=== PATIENT | male | born 1955 | race Caucasian/White ===

== ENCOUNTER 2016-11-02 06:55 | Day surgery (SDC) | payer BC ==
[~2016-11-02 06:55] MED LIST: Lactated Ringers 1,000 ML IV SCH; Lidocaine 1%/Sod Bicarbonate in NS 8.4% 1 ML Syringe PRN; Sodium Chloride 0.9% 10 ML Syringe FLUSH PRN
--- NOTE | 2016-11-02 07:20 | PCM.PREANE ---
Preanesthetic Assessment - Anesthesia/Transfusion/Family Hx Anesthesia History: Prior Anesthesia Without Reaction Family History of Anesthesia Reaction: No - Review of Systems General: No Symptoms Pulmonary: Shortness of Breath (With activity) Cardiovascular: No Symptoms Gastrointestinal: No Symptoms Neurological: No Symptoms Other: Reports: None - Physical Assessment NPO Status Date: 11/02/16 NPO Status Time: 06:15 Pulse: 77 O2 Sat by Pulse Oximetry: 96 Respiratory Rate: 16 Blood Pressure: 111/77 Temperature: 35.7 C Weight: 98 kg ASA Class: 3 Mental Status: Alert & Oriented x3 Airway Class: Mallampati = 1 Dentition: Reports: Partial (Left at home.) Thyro-Mental Finger Breadths: 3 Mouth Opening Finger Breadths: 3 ROM/Head Extension: Full Lungs: Clear to Auscultation, Normal Respiratory Effort Cardiovascular: Regular Rate, Regular Rhythm - Imaging/EKG Impressions: Reviewed. PMR. - Allergies Allergies/Adverse Reactions: Allergies Allergy/AdvReac Type Severity Reaction Status Date / Time No Known Allergies Allergy Verified 11/01/16 12:12 - Acknowledgements Anesthesia Type Planned: MAC Pt an Appropriate Candidate for the Planned Anesthesia: Yes Alternatives and Risks of Anesthesia Discussed w Pt/Guardian: Yes Pt/Guardian Understands and Agrees with Anesthesia Plan: Yes PreAnesthesia Questionnaire HEENT History: Reports: Other (See Below) Other HEENT History: wears glasses, has partial Cardiovascular History: Reports: Afib, Cardiomyopathy, Hypertension Respiratory History: Reports: SOB Gastrointestinal History: Reports: Colon Polyp, Other (See Below) Other Gastrointestinal History: esophagitis Genitourinary History: Reports: None 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 Musculoskeletal History: Neurological History: Reports: None Psychiatric History: Reports: None Hematologic History: Reports: None Immunologic History: Reports: None Oncologic (Cancer) History: Reports: Hodgkin's Lymphoma Dermatologic History: Reports: None - Past Surgical History Head Surgeries/Procedures: Reports: None Cardiovascular Surgical History: Reports: AICD, Pacer GI Surgical History: Reports: Colonoscopy, EGD Female Surgical History: Reports: None Male Surgical History: Reports: None Endocrine Surgical History: Reports: Other (See Below) Other Endocrine Surgeries/Procedures: goiter surgery Neurological Surgical History: Reports: None Musculoskeletal Surgical History: Reports: Shoulder Replacement, Other (See Below) Other Musculoskeletal Surgeries/Procedures:: tib/fib fx with repair, Right hand surgery Oncologic Surgical History: Reports: None Dermatological Surgical History: Reports: None - SUBSTANCE USE Smoking Status *Q: Never Smoker Days Per Week of Alcohol Use: 3 Number of Drinks Per Day: 2 Total Drinks Per Week: 6 Recreational Drug Use History: No - HOME MEDS Home Medications: Home Meds Aspirin [Halfprin] 81 mg PO DAILY 11/01/16 [History] Carvedilol [Carvedilol] 6.25 mg PO BID 11/01/16 [History] Cholecalciferol (Vitamin D3) [Vitamin D3] 1,000 mg PO DAILY 11/01/16 [History] Fish Oil/Osprey-3 Fatty Acids [Fish Oil 1,000 MG] 1,000 mg PO DAILY 11/01/16 [ History] Ibuprofen 1 - 2 tab PO Q6H PRN 11/01/16 [History] Lisinopril [Lisinopril] 2.5 mg PO DAILY 11/01/16 [History] Multivitamin [Zoo Chews] 1 tab PO DAILY 11/01/16 [History] Spironolactone [Aldactone] 25 mg PO DAILY 11/01/16 [History] Tamsulosin HCl [Tamsulosin HCl] 0.4 mg PO DAILY 11/01/16 [History] Warfarin Sodium [Warfarin Sodium] 5 mg PO DAILY 11/01/16 [History] - CURRENT (IN HOUSE) MEDS Current Meds: Current Medications Lactated Ringer's (Ringers, Lactated) 1,000 mls @ 125 mls/hr IV ASDIRECTED BELLA Stop: 11/02/16 23:00 Lidocaine/Sodium Bicarbonate (Buffered Lidocaine 1% In Ns 8.4%) 0.25 ml .XX ONETIME PRN PRN Reason: Prior to IV Start Stop: 11/02/16 18:00 Sodium Chloride (Saline Flush) 10 ml FLUSH ASDIRECTED PRN PRN Reason: Keep Vein Open Stop: 11/02/16 18:00
--- NOTE | 2016-11-02 07:58 | PCM.HP ---
H&P History of Present Illness - General Date of Service: 11/02/16 Admit Problem/Dx: Family history of colon cancer Personal history of colon polyps Source of Information: Patient History Limitations: Reports: No Limitations - History of Present Illness Initial Comments - Free Text/Narative: 60 year old male here today for colon polyp surveillance and family history of colon cancer. Last colonoscopy 5 years ago, adenomatous polyps found. Father with colon cancer. He is having no symptoms at this time. He has a history of paroxysmal a fib and pacemaker placement. He is chest pain free. His echocardiogram is stable. - Related Data Allergies/Adverse Reactions: Allergies Allergy/AdvReac Type Severity Reaction Status Date / Time No Known Allergies Allergy Verified 11/01/16 12:12 Home Medications: Home Meds Aspirin [Halfprin] 81 mg PO DAILY 11/01/16 [History] Carvedilol [Carvedilol] 6.25 mg PO BID 11/01/16 [History] Cholecalciferol (Vitamin D3) [Vitamin D3] 1,000 mg PO DAILY 11/01/16 [History] Fish Oil/Medanales-3 Fatty Acids [Fish Oil 1,000 MG] 1,000 mg PO DAILY 11/01/16 [ History] Ibuprofen 1 - 2 tab PO Q6H PRN 11/01/16 [History] Lisinopril [Lisinopril] 2.5 mg PO DAILY 11/01/16 [History] Multivitamin [Zoo Chews] 1 tab PO DAILY 11/01/16 [History] Spironolactone [Aldactone] 25 mg PO DAILY 11/01/16 [History] Tamsulosin HCl [Tamsulosin HCl] 0.4 mg PO DAILY 11/01/16 [History] Warfarin Sodium [Warfarin Sodium] 5 mg PO DAILY 11/01/16 [History] Past Medical History HEENT History: Reports: Other (See Below) Other HEENT History: wears glasses, has partial Cardiovascular History: Reports: Afib, Cardiomyopathy, Hypertension Respiratory History: Reports: SOB Gastrointestinal History: Reports: Colon Polyp, Other (See Below) Other Gastrointestinal History: esophagitis Genitourinary History: Reports: None 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 Musculoskeletal History: Neurological History: Reports: None Psychiatric History: Reports: None Hematologic History: Reports: None Immunologic History: Reports: None Oncologic (Cancer) History: Reports: Hodgkin's Lymphoma Dermatologic History: Reports: None - Past Surgical History Head Surgeries/Procedures: Reports: None Cardiovascular Surgical History: Reports: AICD, Pacer GI Surgical History: Reports: Colonoscopy, EGD Female Surgical History: Reports: None Male Surgical History: Reports: None Endocrine Surgical History: Reports: Other (See Below) Other Endocrine Surgeries/Procedures: goiter surgery Neurological Surgical History: Reports: None Musculoskeletal Surgical History: Reports: Shoulder Replacement, Other (See Below) Other Musculoskeletal Surgeries/Procedures:: tib/fib fx with repair, Right hand surgery Oncologic Surgical History: Reports: None Dermatological Surgical History: Reports: None Social & Family History - Tobacco Use Smoking Status *Q: Never Smoker - Caffeine Use Caffeine Use: Reports: Coffee - Alcohol Use Days Per Week of Alcohol Use: 3 Number of Drinks Per Day: 2 Total Drinks Per Week: 6 - Recreational Drug Use Recreational Drug Use: No Drug Use in Last 12 Months: No H&P Review of Systems - Review of Systems: Review Of Systems: See Below General: Reports: No Symptoms Pulmonary: Reports: No Symptoms Cardiovascular: Reports: No Symptoms Gastrointestinal: Reports: No Symptoms Exam - Exam Exam: See Below - Vital Signs Vital Signs: Last Vital Signs Temp 36.2 C 11/02/16 07:05 Pulse 77 11/02/16 07:05 Resp 16 11/02/16 07:05 BP 111/77 11/02/16 07:05 Pulse Ox 96 11/02/16 07:05 Weight: 98.883 kg - Exam General: Alert, Oriented Lungs: Clear to Auscultation, Normal Respiratory Effort Cardiovascular: Regular Rate, Regular Rhythm GI/Abdominal Exam: Normal Bowel Sounds, Soft, Non-Tender *Q Meaningful Use (ADM) - VTE *Q VTE Criteria *Q: - Stroke *Q Stroke Criteria *Q: - AMI *Q AMI Criteria *Q: - Problem List (1) Personal history of colonic polyps SNOMED Code(s): 401307782 ICD Code: Z86.010 - PERSONAL HISTORY OF COLONIC POLYPS Status: Acute Current Visit: Yes (2) Family history of colon cancer in father SNOMED Code(s): 288096033, 177819378 ICD Code: Z80.0 - FAMILY HISTORY OF MALIGNANT NEOPLASM OF DIGESTIVE ORGANS Status: Acute Current Visit: Yes Problem List Initiated/Reviewed/Updated: Yes Orders Last 24hrs: Active Orders 24 hr Category Date Time Status Peripheral IV Care [RC] . DIRECTED Care 11/02/16 00:01 Active Verify Patient Consent Obtain [RC] ASDIRECTED Care 11/02/16 00:01 Active Lactated Ringers [Ringers, Lactated] 1,000 ml Med 11/02/16 00:01 Active IV ASDIRECTED Lidocaine 1%/Sod Bicarbonate [Buffered Lidocaine 1% in Med 11/02/16 00:01 Active NS 8.4%] 0.25 ml .XX ONETIME PRN Sodium Chloride 0.9% [Saline Flush] Med 11/02/16 00:01 Active 10 ml FLUSH ASDIRECTED PRN Medication Administration Instruction [OM.PC] Routine Oth 11/02/16 00:01 Ordered Peripheral IV Insertion Adult [OM.PC] Routine Oth 11/02/16 00:01 Ordered Medication Orders Lactated Ringer's (Ringers, Lactated) 1,000 mls @ 125 mls/hr IV ASDIRECTED BELLA Stop: 11/02/16 23:00 Last Admin: 11/02/16 07:40 Dose: 125 mls/hr Lidocaine/Sodium Bicarbonate (Buffered Lidocaine 1% In Ns 8.4%) 0.25 ml .XX ONETIME PRN PRN Reason: Prior to IV Start Stop: 11/02/16 18:00 Last Admin: 11/02/16 07:39 Dose: 0.25 ml Sodium Chloride (Saline Flush) 10 ml FLUSH ASDIRECTED PRN PRN Reason: Keep Vein Open Stop: 11/02/16 18:00 Assessment/Plan Comment:: Proceed with colonoscopy, discussed benefits and risks with patient including perforation or bleeding. Patient has consented to procedure.
[2016-11-02] MEDS ORDERED: fentaNYL 100 MCG/2 ML SDV ONE (08:05)
[2016-11-02] MEDS ORDERED: Lidocaine 1% 4 ML ONE (08:05)
[2016-11-02] MEDS ORDERED: Propofol 200 MG/20 ML SDV ONE (08:05)
[2016-11-02] MEDS ORDERED: Ondansetron 4 MG/2 ML SDV ONE (08:05)
--- NOTE | 2016-11-02 08:31 | PCM.OPNOTE ---
- General Post-Op/Procedure Note Date of Surgery/Procedure: 11/02/16 Operative Procedure(s): Colonoscopy with cold forceps biopsy Pre Op Diagnosis: Family history of colon cancer, Personal history of colon polyps Post-Op Diagnosis: 2 mm rectal polyp Anesthesia Technique: MAC Primary Surgeon: Flroian Min EBL in mLs: 5 Complications: none Condition: Good Free Text/Narrative:: After patient gave verbal and written consent he was placed on blood pressure and pulse ox monitoring. He was given IV sedation which he tolerated well. The olympus colonoscope was inserted per rectum and advanced to the cecum without difficulty. The ileocecal valve and appendiceal orfice were imaged documenting cecal intubation. The prep was good. The views were good. The scope was slowly withdrawn and mucosal surfaces were visualized. A small 2 mm rectal polyp was noted and removed with cold forceps. There was good hemostasis. The scope was retroflexed in the rectum and details are above.
--- NOTE | 2016-11-02 08:36 | PCM48HPAN ---
Post Anesthesia Note - EVALUATION WITHIN 48HRS OF ANESTHETIC Vital Signs in Normal Range: Yes Patient Participated in Evaluation: Yes Respiratory Function Stable: Yes Airway Patent: Yes Cardiovascular Function Stable: Yes Hydration Status Stable: Yes Pain Control Satisfactory: Yes Nausea and Vomiting Control Satisfactory: Yes Mental Status Recovered: Yes
[2016-11-02 09:40] VITALS: BP 117/70
== END 2016-11-02 09:40 | disposition home or self-care (01) ==
LOC: JD.SDS 06:55
PROVIDERS: ATTEND Family Medicine
DX: Z12.11 Encounter for screening for malignant neoplasm of colon (principal); D12.8 Benign neoplasm of rectum; Z86.010 Personal history of colon polyps; Z80.0 Family history of malignant neoplasm of digestive organs; Z79.82 Long term (current) use of aspirin; Z79.899 Other long term (current) drug therapy; I10 Essential (primary) hypertension; Z95.810 Presence of automatic (implantable) cardiac defibrillator; Z95.0 Presence of cardiac pacemaker; Z98.890 Other specified postprocedural states; Z96.611 Presence of right artificial shoulder joint
CPT/HCPCS: 45380; J2405; J3010; J7120; 00810; J2704

== ENCOUNTER 2023-01-26 13:33 | Inpatient (IN) | payer MEDICARE, BC ==
[2023-01-26] MEDS ORDERED: Sodium Chloride 0.9% 10 ML Syringe FLUSH PRN (13:53)
[2023-01-26] MEDS ORDERED: Sodium Chloride 0.9% 500 ML IV STA (14:20)
[2023-01-26 14:30] LABS: BASOPHILS PERCENT AUTO 0.4 % (0.0-1.0); EOSINOPHILS ABSOLUTE AUTO 0.1 K/mm3 (0.0-0.4); EOSINOPHILS PERCENT AUTO 1.5 % (0.0-6.0); HEMATOCRIT 38.3 % (42.0-52.0); HEMOGLOBIN 12.6 gm/dl (14.0-18.0); IMMATURE GRAN ABSOLUTE AUTO 0.02 K/mm3 (0.00-0.05); IMMATURE GRAN PERCENT AUTO 0.3 % (0.0-0.4); LYMPHOCYTES ABSOLUTE AUTO 0.7 K/mm3 (1.0-4.8); LYMPHOCYTES PERCENT AUTO 10.2 % (24.0-44.0); MEAN CORPUSCULAR HEMOGLOBIN 31.3 pg (28.0-32.0); MEAN CORPUSCULAR HGB CONC 32.9 g/dl (32.0-36.0); MEAN PLATELET VOLUME 10.3 fl (9.4-12.4); MONOCYTES ABSOLUTE AUTO 0.8 K/mm3 (0.0-0.8); MONOCYTES PERCENT AUTO 11.6 % (0.0-8.0); NEUTROPHILS ABSOLUTE AUTO 5.2 K/mm3 (1.8-7.7); PLATELET COUNT,PLT 134 K/mm3 (150-400); RED BLOOD CELL COUNT 4.03 M/mm3 (4.52-5.90); WHITE BLOOD CELL COUNT,WBC 6.79 K/mm3 (3.9-11.3)
[2023-01-26 14:41] LABS: APPEARANCE,URINE CLEAR (Clear); BILIRUBIN,URINE NEGATIVE (Negative); COLOR,URINE YELLOW (Yellow); GLUCOSE,URINE NEGATIVE (Negative); KETONES,URINE NEGATIVE (Negative); LEUKOCYTE ESTERASE,URINE NEGATIVE (Negative); NITRITE,URINE NEGATIVE (Negative); OCCULT BLOOD,URINE NEGATIVE (Negative); PROTEIN,URINE 1+ (Negative); UROBILINOGEN,URINE 0.2 (0.2-1.0)
[2023-01-26 14:49] LABS: AMORPHOUS SEDIMENT,URINE FEW /hpf (NOT SEEN); BACTERIA,URINE FEW /hpf (FEW); EPITHELIAL CELLS,URINE 0-5 /hpf (0-5); MUCUS,URINE FEW /hpf (FEW); RBC,URINE 0-5 /hpf (0-5); WBC,URINE 0-5 /hpf (0-5)
[2023-01-26 14:58] LABS: ALBUMIN 3.3 g/dl (3.4-5.0); ANION GAP 9.8 (5-15); BILIRUBIN TOTAL 1.7 mg/dL (0.2-1.0); BUN/CREATININE RATIO 18.5 (14-18); CALCIUM 8.9 mg/dL (8.5-10.1); CREATININE 1.3 mg/dL (0.7-1.3); EST CRCL DRUG DOSING (CG) 62.35 mL/min; POTASSIUM,K 3.8 mEq/L (3.5-5.1); PROTEIN TOTAL,TP 6.5 g/dl (6.4-8.2)
[2023-01-26 15:04] LABS: CORONAVIRUS COVID-19 NAA NEGATIVE (NEGATIVE); INFLUENZA A NAA NEGATIVE (NEGATIVE); RESPIRATORY SYNCYTIAL VIR NAA NEGATIVE (NEGATIVE)
[2023-01-26 15:30] LABS: INR 2.92; PROTHROMBIN TIME 28.9 SECONDS (9.7-12.0)
[2023-01-26] MEDS ORDERED: Acetaminophen 325 MG Tab PO PRN (16:19)
[2023-01-26] MEDS ORDERED: oxyCODONE 5 MG Tab PO PRN (16:19)
[2023-01-26 17:37] LABS: INR 2.95; PROTHROMBIN TIME 29.1 SECONDS (9.7-12.0)
[2023-01-26] MEDS: Sodium Chloride 0.9% 1,000 ML IV SCH (18:48)
[2023-01-26] MEDS: Carbidopa/Levodopa 25-100 MG Tab.ER PO SCH (20:26)
[2023-01-26] MEDS ORDERED: Carbidopa/Levodopa 25-100 MG Tab PO SCH (21:00)
[2023-01-27] MEDS: Sodium Chloride 0.9% 1,000 ML IV SCH ×2 (05:08→14:17)
[2023-01-27 05:47] LABS: BASOPHILS PERCENT AUTO 0.6 % (0.0-1.0); EOSINOPHILS ABSOLUTE AUTO 0.1 K/mm3 (0.0-0.4); EOSINOPHILS PERCENT AUTO 2.2 % (0.0-6.0); HEMATOCRIT 36.8 % (42.0-52.0); HEMOGLOBIN 12.3 gm/dl (14.0-18.0); IMMATURE GRAN ABSOLUTE AUTO 0.02 K/mm3 (0.00-0.05); IMMATURE GRAN PERCENT AUTO 0.3 % (0.0-0.4); LYMPHOCYTES ABSOLUTE AUTO 0.9 K/mm3 (1.0-4.8); LYMPHOCYTES PERCENT AUTO 13.1 % (24.0-44.0); MEAN CORPUSCULAR HEMOGLOBIN 30.7 pg (28.0-32.0); MEAN CORPUSCULAR HGB CONC 33.4 g/dl (32.0-36.0); MONOCYTES ABSOLUTE AUTO 0.9 K/mm3 (0.0-0.8); MONOCYTES PERCENT AUTO 13.3 % (0.0-8.0); NEUTROPHILS ABSOLUTE AUTO 4.6 K/mm3 (1.8-7.7); NEUTROPHILS PERCENT AUTO 70.5 % (41.0-71.0); PLATELET COUNT,PLT 137 K/mm3 (150-400); RED BLOOD CELL COUNT 4.01 M/mm3 (4.52-5.90); WHITE BLOOD CELL COUNT,WBC 6.48 K/mm3 (3.9-11.3)
[2023-01-27 05:56] LABS: A/G RATIO 0.9 (1-2); ALBUMIN 3.1 g/dl (3.4-5.0); ANION GAP 13.7 (5-15); BILIRUBIN TOTAL 1.6 mg/dL (0.2-1.0); CALCIUM 8.7 mg/dL (8.5-10.1); CREATININE 1.2 mg/dL (0.7-1.3); EST CRCL DRUG DOSING (CG) 67.55 mL/min; POTASSIUM,K 3.7 mEq/L (3.5-5.1); PROTEIN TOTAL,TP 6.5 g/dl (6.4-8.2)
[2023-01-27 05:58] LABS: MEAN CORPUSCULAR VOLUME 91.8 fl (83.0-99.0)
[2023-01-27] MEDS: Tamsulosin 0.4 MG Cap.ER PO SCH (08:24)
[2023-01-27] MEDS: Multivitamin Tab PO SCH (08:24)
[2023-01-27] MEDS: Carbidopa/Levodopa 25-100 MG Tab PO SCH ×3 (08:24→17:09)
[2023-01-27] MEDS: Potassium Chloride 20 MEQ Tab.ER PO SCH (08:24)
[2023-01-27] MEDS: Sertraline 50 MG Tab PO SCH (08:25)
[2023-01-27] MEDS: Spironolactone 25 MG Tab PO SCH (08:25)
[2023-01-27] MEDS: Losartan 25 MG Tab PO SCH (08:27)
[2023-01-27] MEDS: Metoprolol Succinate 50 MG Tab.ER PO SCH (08:27)
[2023-01-27] MEDS ORDERED: Metolazone 2.5 MG Tab PO SCH (09:00)
[2023-01-27] MEDS ORDERED: Cholecalciferol (Vitamin D3) 25 MCG Tab PO SCH (09:00)
[2023-01-27] MEDS ORDERED: Furosemide 40 MG Tab PO SCH (09:00)
[2023-01-27] MEDS ORDERED: Lidocaine 1% 10 ML MDV INJECT PRN ×2 (09:46→12:00)
[2023-01-27] MEDS ORDERED: Ondansetron 4 MG Tab.DIS PO PRN (14:07)
[2023-01-27] MEDS ORDERED: Warfarin 5 MG Tab PO SCH (18:00)
[2023-01-27] MEDS: Carbidopa/Levodopa 25-100 MG Tab.ER PO SCH (21:18)
[2023-01-28] MEDS: Sodium Chloride 0.9% 1,000 ML IV SCH (00:13)
[2023-01-28 06:24] LABS: BASOPHILS ABSOLUTE AUTO 0.1 K/mm3 (0.0-0.2); BASOPHILS PERCENT AUTO 0.6 % (0.0-1.0); EOSINOPHILS ABSOLUTE AUTO 0.1 K/mm3 (0.0-0.4); EOSINOPHILS PERCENT AUTO 1.4 % (0.0-6.0); HEMATOCRIT 40.5 % (42.0-52.0); HEMOGLOBIN 13.5 gm/dl (14.0-18.0); IMMATURE GRAN ABSOLUTE AUTO 0.03 K/mm3 (0.00-0.05); IMMATURE GRAN PERCENT AUTO 0.3 % (0.0-0.4); LYMPHOCYTES ABSOLUTE AUTO 1.1 K/mm3 (1.0-4.8); LYMPHOCYTES PERCENT AUTO 12.3 % (24.0-44.0); MEAN CORPUSCULAR HEMOGLOBIN 31.2 pg (28.0-32.0); MEAN CORPUSCULAR HGB CONC 33.3 g/dl (32.0-36.0); MEAN CORPUSCULAR VOLUME 93.5 fl (83.0-99.0); MEAN PLATELET VOLUME 10.6 fl (9.4-12.4); MONOCYTES PERCENT AUTO 11.2 % (0.0-8.0); NEUTROPHILS ABSOLUTE AUTO 6.4 K/mm3 (1.8-7.7); NEUTROPHILS PERCENT AUTO 74.2 % (41.0-71.0); PLATELET COUNT,PLT 142 K/mm3 (150-400); RED BLOOD CELL COUNT 4.33 M/mm3 (4.52-5.90); WHITE BLOOD CELL COUNT,WBC 8.59 K/mm3 (3.9-11.3)
[2023-01-28] MEDS: Carbidopa/Levodopa 25-100 MG Tab PO SCH ×3 (06:36→17:09)
[2023-01-28 06:51] LABS: ALBUMIN 2.9 g/dl (3.4-5.0); ANION GAP 12.7 (5-15); BILIRUBIN TOTAL 1.9 mg/dL (0.2-1.0); CALCIUM 8.2 mg/dL (8.5-10.1); CREATININE 1.1 mg/dL (0.7-1.3); EST CRCL DRUG DOSING (CG) 73.69 mL/min; POTASSIUM,K 3.7 mEq/L (3.5-5.1); PROTEIN TOTAL,TP 5.9 g/dl (6.4-8.2)
[2023-01-28] MEDS ORDERED: Furosemide 40 MG/4 ML VIAL IVPUSH ONE (07:43)
[2023-01-28 07:59] LABS: BODY FLUID TYPE THORACENTESIS FLUID
[2023-01-28] MEDS ORDERED: Polyethylene Glycol 3350 Powder 17 GM Packet PO PRN (08:09)
[2023-01-28 08:12] LABS: BODY FLUID TYPE THORACENTESIS FLUID
[2023-01-28] MEDS ORDERED: Ondansetron 4 MG/2 ML SDV IV PRN (08:12)
[2023-01-28 08:28] LABS: INR 2.25; PROTHROMBIN TIME 22.7 SECONDS (9.7-12.0)
[2023-01-28 08:33] LABS: PROTEIN,BODY FLUID 3.1 gm/dl
[2023-01-28] MEDS: Potassium Chloride 20 MEQ Tab.ER PO SCH (08:38)
[2023-01-28] MEDS: Losartan 25 MG Tab PO SCH (08:39)
[2023-01-28] MEDS: Metoprolol Succinate 50 MG Tab.ER PO SCH (08:39)
[2023-01-28] MEDS: Tamsulosin 0.4 MG Cap.ER PO SCH (08:40)
[2023-01-28] MEDS: Sertraline 50 MG Tab PO SCH (08:40)
[2023-01-28] MEDS: Multivitamin Tab PO SCH (08:40)
[2023-01-28] MEDS: Spironolactone 25 MG Tab PO SCH (08:40)
[2023-01-28 08:44] LABS: LACTATE DEHYDROGENASE,BODY FL 92 U/L
[2023-01-28] MEDS ORDERED: Metolazone 2.5 MG Tab PO SCH (09:00)
[2023-01-28] MEDS ORDERED: Docusate Sodium 100 MG Cap PO PRN (09:00)
[2023-01-28] MEDS ORDERED: oxyCODONE 5 MG Tab PO PRN (15:52)
[2023-01-28] MEDS ORDERED: Warfarin 5 MG Tab PO SCH (18:00)
[2023-01-28] MEDS: Carbidopa/Levodopa 25-100 MG Tab.ER PO SCH (20:22)
[2023-01-29 05:29] LABS: ANION GAP 13.8 (5-15); CALCIUM 8.5 mg/dL (8.5-10.1); EST CRCL DRUG DOSING (CG) 81.06 mL/min; MAGNESIUM 1.7 mg/dL (1.8-2.4); POTASSIUM,K 3.8 mEq/L (3.5-5.1)
[2023-01-29 06:08] LABS: INR 2.11; PROTHROMBIN TIME 21.4 SECONDS (9.7-12.0)
[2023-01-29] MEDS: Carbidopa/Levodopa 25-100 MG Tab PO SCH (06:35)
[2023-01-29] MEDS ORDERED: Magnesium Sulfate/Water 2 GM in Premix Bag 1 BAG IV ONE (07:53)
[2023-01-29] MEDS: Potassium Chloride 20 MEQ Tab.ER PO SCH (08:20)
[2023-01-29] MEDS: Losartan 25 MG Tab PO SCH (08:21)
[2023-01-29] MEDS: Metoprolol Succinate 50 MG Tab.ER PO SCH (08:21)
[2023-01-29] MEDS: Spironolactone 25 MG Tab PO SCH (08:21)
[2023-01-29] MEDS: Sertraline 50 MG Tab PO SCH (08:21)
[2023-01-29] MEDS: Multivitamin Tab PO SCH (08:21)
[2023-01-29] MEDS: Tamsulosin 0.4 MG Cap.ER PO SCH (08:21)
[2023-01-29 08:23] VITALS: BP 91/66; PULSE 81
[2023-01-29] MEDS ORDERED: Furosemide 40 MG Tab PO ONE (08:30)
[2023-01-29] MEDS ORDERED: Furosemide 40 MG Tab PO SCH (14:00)
[2023-01-29] MEDS ORDERED: Warfarin 5 MG Tab PO SCH (18:00)
[2023-01-30] MEDS ORDERED: Losartan 25 MG Tab PO SCH (09:00)
== END 2023-01-29 10:47 | disposition home or self-care (01) | DRG 291 ==
LOC: JD.ED 13:33 → JD.MS 16:20
PROVIDERS: ADMIT Internal Medicine; ATTEND Internal Medicine
PROC: 0W993ZZ Drainage of Right Pleural Cavity, Percutaneous Approach (ICD-10-PCS; principal; 2023-01-27)
DX: I11.0 Hypertensive heart disease with heart failure (principal); I50.43 Acute on chronic combined systolic (congestive) and diastolic (congestive) heart failure; J90 Pleural effusion, not elsewhere classified; I48.91 Unspecified atrial fibrillation; I95.9 Hypotension, unspecified; Z79.899 Other long term (current) drug therapy; G20.B1 Parkinson's disease with dyskinesia, without mention of fluctuations; E83.42 Hypomagnesemia; G20.A1 Parkinson's disease without dyskinesia, without mention of fluctuations; Z20.822 Contact with and (suspected) exposure to COVID-19; Z79.01 Long term (current) use of anticoagulants; Z95.0 Presence of cardiac pacemaker; Z85.72 Personal history of non-Hodgkin lymphomas; Z86.16 Personal history of COVID-19; Z87.891 Personal history of nicotine dependence; Z11.52 Encounter for screening for COVID-19
CPT/HCPCS: 0241U; 36415; 71045; 71046; 80048; 80053; 81001; 83615; 83735; 83880; 84157; 84484; 85025; 85379; 85610; 86140; 93005; 93307; 96360; 96361; 97116; 97161; 99285; 88112; 93010; A9270-GY; J1940; J3475; J3490; J7030

== ENCOUNTER 2023-02-04 14:44 | Emergency (ER) | payer MEDICARE, BC ==
[2023-02-04] MEDS ORDERED: Sodium Chloride 0.9% 10 ML Syringe FLUSH PRN (15:34)
[2023-02-04 16:08] LABS: BASOPHILS ABSOLUTE AUTO 0.1 K/mm3 (0.0-0.2); BASOPHILS PERCENT AUTO 0.8 % (0.0-1.0); EOSINOPHILS ABSOLUTE AUTO 0.2 K/mm3 (0.0-0.4); HEMATOCRIT 40.9 % (42.0-52.0); HEMOGLOBIN 13.6 gm/dl (14.0-18.0); IMMATURE GRAN ABSOLUTE AUTO 0.04 K/mm3 (0.00-0.05); IMMATURE GRAN PERCENT AUTO 0.6 % (0.0-0.4); LYMPHOCYTES ABSOLUTE AUTO 0.8 K/mm3 (1.0-4.8); LYMPHOCYTES PERCENT AUTO 12.4 % (24.0-44.0); MEAN CORPUSCULAR HEMOGLOBIN 31.3 pg (28.0-32.0); MEAN CORPUSCULAR HGB CONC 33.3 g/dl (32.0-36.0); MEAN CORPUSCULAR VOLUME 94.2 fl (83.0-99.0); MEAN PLATELET VOLUME 9.6 fl (9.4-12.4); MONOCYTES ABSOLUTE AUTO 0.8 K/mm3 (0.0-0.8); MONOCYTES PERCENT AUTO 13.4 % (0.0-8.0); NEUTROPHILS ABSOLUTE AUTO 4.4 K/mm3 (1.8-7.7); NEUTROPHILS PERCENT AUTO 69.8 % (41.0-71.0); PLATELET COUNT,PLT 164 K/mm3 (150-400); RED BLOOD CELL COUNT 4.34 M/mm3 (4.52-5.90); WHITE BLOOD CELL COUNT,WBC 6.29 K/mm3 (3.9-11.3)
[2023-02-04 16:39] LABS: ALANINE AMINOTRANSFERASE,ALT 10 U/L (16-63); ALBUMIN 3.6 g/dl (3.4-5.0); ALKALINE PHOSPHATASE 64 U/L (46-116); ANION GAP 14.7 (5-15); ASPARTATE AMNIOTRANSFERASE,AST 26 U/L (15-37); BILIRUBIN TOTAL 1.2 mg/dL (0.2-1.0); BLOOD UREA NITROGEN,BUN 20 mg/dL (7-18); BUN/CREATININE RATIO 16.7 (14-18); CALCIUM 9.3 mg/dL (8.5-10.1); CARBON DIOXIDE,CO2 26 mEq/L (21-32); CHLORIDE,CL 102 mEq/L (98-107); CREATININE 1.2 mg/dL (0.7-1.3); ESTIMATED GFR 65 mL/min (>60); GLUCOSE RANDOM 97 mg/dL (70-99); POTASSIUM,K 3.7 mEq/L (3.5-5.1); PROTEIN TOTAL,TP 7.3 g/dl (6.4-8.2); SODIUM,NA 139 mEq/L (136-145); TROPONIN I HIGH SENSITIVITY 65 pg/mL (<=76)
[2023-02-04 17:49] LABS: INR 2.06; PROTHROMBIN TIME 20.9 SECONDS (9.7-12.0)
[2023-02-04 18:41] VITALS: BP 100/71; PULSE 70
== END 2023-02-04 18:20 ==
LOC: JD.ED 14:44
DX: T82.198A Other mechanical complication of other cardiac electronic device, initial encounter (principal); I48.91 Unspecified atrial fibrillation; I11.0 Hypertensive heart disease with heart failure; I50.9 Heart failure, unspecified; Z86.16 Personal history of COVID-19; Z79.899 Other long term (current) drug therapy; Z79.01 Long term (current) use of anticoagulants
CPT/HCPCS: 36415; 71045; 80053; 83735; 84484; 85025; 85610; 93005; 96365; 99285; J0282; 93010

== ENCOUNTER 2023-02-19 10:18 | Inpatient (IN) | payer BC, MEDICARE ==
[2023-02-19] MEDS ORDERED: levETIRAcetam 1,000 MG in Sodium Chloride 0.9% 100 ML IV ONE (10:52)
[2023-02-19 11:31] LABS: BASOPHILS ABSOLUTE AUTO 0.1 K/mm3 (0.0-0.2); BASOPHILS PERCENT AUTO 0.7 % (0.0-1.0); EOSINOPHILS ABSOLUTE AUTO 0.2 K/mm3 (0.0-0.4); EOSINOPHILS PERCENT AUTO 2.2 % (0.0-6.0); HEMATOCRIT 38.6 % (42.0-52.0); HEMOGLOBIN 12.9 gm/dl (14.0-18.0); IMMATURE GRAN ABSOLUTE AUTO 0.03 K/mm3 (0.00-0.05); IMMATURE GRAN PERCENT AUTO 0.4 % (0.0-0.4); LYMPHOCYTES ABSOLUTE AUTO 0.6 K/mm3 (1.0-4.8); LYMPHOCYTES PERCENT AUTO 8.4 % (24.0-44.0); MEAN CORPUSCULAR HEMOGLOBIN 30.9 pg (28.0-32.0); MEAN CORPUSCULAR HGB CONC 33.4 g/dl (32.0-36.0); MEAN CORPUSCULAR VOLUME 92.3 fl (83.0-99.0); MEAN PLATELET VOLUME 11.1 fl (9.4-12.4); MONOCYTES ABSOLUTE AUTO 0.7 K/mm3 (0.0-0.8); NEUTROPHILS ABSOLUTE AUTO 5.4 K/mm3 (1.8-7.7); NEUTROPHILS PERCENT AUTO 78.3 % (41.0-71.0); PLATELET COUNT,PLT 131 K/mm3 (150-400); RED BLOOD CELL COUNT 4.18 M/mm3 (4.52-5.90)
[2023-02-19 11:52] LABS: A/G RATIO 1.1 (1-2); ALBUMIN 3.3 g/dl (3.4-5.0); ANION GAP 13.1 (5-15); BILIRUBIN TOTAL 0.8 mg/dL (0.2-1.0); BUN/CREATININE RATIO 20.6 (14-18); CALCIUM 8.7 mg/dL (8.5-10.1); CREATININE 1.7 mg/dL (0.7-1.3); EST CRCL DRUG DOSING (CG) 47.36 mL/min; MAGNESIUM 2.6 mg/dL (1.8-2.4); POTASSIUM,K 5.1 mEq/L (3.5-5.1); PROTEIN TOTAL,TP 6.4 g/dl (6.4-8.2)
[2023-02-19 12:02] LABS: INR 5.71; PROTHROMBIN TIME 53.7 SECONDS (9.7-12.0)
[2023-02-19] MEDS ORDERED: Lactated Ringers 1,000 ML IV SCH (12:30)
[2023-02-19 14:11] LABS: APPEARANCE,URINE SLT CLOUDY (Clear); BILIRUBIN,URINE NEGATIVE (Negative); COLOR,URINE YELLOW (Yellow); GLUCOSE,URINE 2+ (Negative); KETONES,URINE NEGATIVE (Negative); LEUKOCYTE ESTERASE,URINE NEGATIVE (Negative); NITRITE,URINE NEGATIVE (Negative); OCCULT BLOOD,URINE NEGATIVE (Negative); PH,URINE 6.5 (5.0-8.0); PROTEIN,URINE 1+ (Negative)
[2023-02-19 14:38] LABS: BACTERIA,URINE FEW /hpf (FEW); EPITHELIAL CELLS,URINE 0-5 /hpf (0-5); MUCUS,URINE NOT SEEN /hpf (FEW); RBC,URINE 0-5 /hpf (0-5); WBC,URINE 0-5 /hpf (0-5)
[2023-02-19] MEDS: Insulin Lispro 100 Unit/ML 3 ML KwikPen SUBCUT SCH (20:41)
[2023-02-19] MEDS: Amiodarone 200 MG Tab PO SCH (20:42)
[2023-02-19] MEDS: Carbidopa/Levodopa 25-100 MG Tab.ER PO SCH (20:43)
[2023-02-19] MEDS: Rosuvastatin 10 MG Tab PO SCH (20:43)
[2023-02-20 06:22] LABS: HEMATOCRIT 40.6 % (42.0-52.0); HEMOGLOBIN 13.5 gm/dl (14.0-18.0); MEAN CORPUSCULAR HEMOGLOBIN 30.5 pg (28.0-32.0); MEAN CORPUSCULAR HGB CONC 33.3 g/dl (32.0-36.0); MEAN CORPUSCULAR VOLUME 91.9 fl (83.0-99.0); PLATELET COUNT,PLT 133 K/mm3 (150-400); RED BLOOD CELL COUNT 4.42 M/mm3 (4.52-5.90)
[2023-02-20 06:47] LABS: PROTHROMBIN TIME 52.6 SECONDS (9.7-12.0)
[2023-02-20 06:48] LABS: INR 5.58
[2023-02-20] MEDS: Carbidopa/Levodopa 25-100 MG Tab PO SCH ×3 (06:52→17:41)
[2023-02-20 06:57] LABS: ANION GAP 12.5 (5-15); CALCIUM 8.8 mg/dL (8.5-10.1); CREATININE 1.5 mg/dL (0.7-1.3); EST CRCL DRUG DOSING (CG) 54.04 mL/min; POTASSIUM,K 4.5 mEq/L (3.5-5.1)
[2023-02-20] MEDS: Insulin Lispro 100 Unit/ML 3 ML KwikPen SUBCUT SCH ×4 (08:12→21:39)
[2023-02-20] MEDS: levETIRAcetam 500 MG Tab PO SCH (08:24)
[2023-02-20] MEDS: Multivitamins with Minerals/Folic Acid/Lutein/Zeaxanth Tab PO SCH (08:24)
[2023-02-20] MEDS: Tamsulosin 0.4 MG Cap.ER PO SCH (08:24)
[2023-02-20] MEDS: Pantoprazole 40 MG Tab.CR PO SCH (08:25)
[2023-02-20] MEDS: Amiodarone 200 MG Tab PO SCH ×2 (08:25→20:03)
[2023-02-20] MEDS: Potassium Chloride 20 MEQ Tab.ER PO SCH (08:25)
[2023-02-20] MEDS: Sertraline 50 MG Tab PO SCH (08:27)
[2023-02-20] MEDS: Metoprolol Succinate 25 MG Tab.ER PO SCH (08:31)
[2023-02-20 11:00] LABS: TSH 2.916 uIU/mL (0.358-3.74)
[2023-02-20] MEDS: Sodium Chloride 0.9% 1,000 ML IV SCH (14:34)
[2023-02-20] MEDS ORDERED: Warfarin Sliding Scale PO SCH (18:00)
[2023-02-20] MEDS: Rosuvastatin 10 MG Tab PO SCH ×2 (19:44→20:00)
[2023-02-20] MEDS: Carbidopa/Levodopa 25-100 MG Tab.ER PO SCH ×2 (19:44→20:00)
[2023-02-21] MEDS: Sodium Chloride 0.9% 1,000 ML IV SCH (02:12)
[2023-02-21] MEDS: Carbidopa/Levodopa 25-100 MG Tab PO SCH ×3 (06:46→17:33)
[2023-02-21 08:20] LABS: HEMOGLOBIN 13.2 gm/dl (14.0-18.0); MEAN CORPUSCULAR HEMOGLOBIN 31.1 pg (28.0-32.0); MEAN CORPUSCULAR HGB CONC 33.8 g/dl (32.0-36.0); MEAN PLATELET VOLUME 10.8 fl (9.4-12.4); PLATELET COUNT,PLT 120 K/mm3 (150-400); RED BLOOD CELL COUNT 4.24 M/mm3 (4.52-5.90); WHITE BLOOD CELL COUNT,WBC 8.44 K/mm3 (3.9-11.3)
[2023-02-21] MEDS: Insulin Lispro 100 Unit/ML 3 ML KwikPen SUBCUT SCH ×2 (08:34→11:34)
[2023-02-21 08:47] LABS: INR 4.3; PROTHROMBIN TIME 41.3 SECONDS (9.7-12.0)
[2023-02-21 09:02] LABS: ANION GAP 14.5 (5-15); BUN/CREATININE RATIO 19.3 (14-18); CALCIUM 8.9 mg/dL (8.5-10.1); CREATININE 1.5 mg/dL (0.7-1.3); EST CRCL DRUG DOSING (CG) 54.04 mL/min; POTASSIUM,K 4.5 mEq/L (3.5-5.1)
[2023-02-21 09:07] LABS: MAGNESIUM 2.2 mg/dL (1.8-2.4); PHOSPHORUS 3.4 mg/dL (2.6-4.7)
[2023-02-21] MEDS: Aspirin 81 MG Tab.Chew PO SCH (09:16)
[2023-02-21] MEDS: Metoprolol Succinate 25 MG Tab.ER PO SCH ×2 (09:16→10:25)
[2023-02-21] MEDS: Multivitamins with Minerals/Folic Acid/Lutein/Zeaxanth Tab PO SCH (09:16)
[2023-02-21] MEDS: Amiodarone 200 MG Tab PO SCH (09:16)
[2023-02-21] MEDS: Pantoprazole 40 MG Tab.CR PO SCH (09:16)
[2023-02-21] MEDS: Tamsulosin 0.4 MG Cap.ER PO SCH (09:17)
[2023-02-21] MEDS: Sertraline 50 MG Tab PO SCH (09:17)
[2023-02-21] MEDS: Potassium Chloride 20 MEQ Tab.ER PO SCH (09:17)
[2023-02-21] MEDS: levETIRAcetam 500 MG Tab PO SCH (09:17)
[2023-02-21] MEDS: Docusate Sodium 100 MG Cap PO PRN (13:10)
[2023-02-21] MEDS ORDERED: Warfarin Sliding Scale PO SCH (18:00)
[2023-02-21] MEDS: Carbidopa/Levodopa 25-100 MG Tab.ER PO SCH (20:42)
[2023-02-21] MEDS: Rosuvastatin 10 MG Tab PO SCH (20:43)
[2023-02-22] MEDS: Carbidopa/Levodopa 25-100 MG Tab PO SCH ×3 (06:46→18:38)
[2023-02-22] MEDS: Amiodarone 200 MG Tab PO SCH (09:14)
[2023-02-22] MEDS: Sertraline 50 MG Tab PO SCH (09:15)
[2023-02-22] MEDS: Multivitamins with Minerals/Folic Acid/Lutein/Zeaxanth Tab PO SCH (09:15)
[2023-02-22] MEDS: Tamsulosin 0.4 MG Cap.ER PO SCH (09:15)
[2023-02-22] MEDS: Potassium Chloride 20 MEQ Tab.ER PO SCH (09:15)
[2023-02-22] MEDS: Docusate Sodium 100 MG Cap PO PRN (09:15)
[2023-02-22] MEDS: Metoprolol Succinate 25 MG Tab.ER PO SCH (09:15)
[2023-02-22] MEDS: Aspirin 81 MG Tab.Chew PO SCH (09:15)
[2023-02-22] MEDS: Pantoprazole 40 MG Tab.CR PO SCH (09:15)
[2023-02-22] MEDS: levETIRAcetam 500 MG Tab PO SCH (09:15)
[2023-02-22] MEDS ORDERED: Sennosides/Docusate Sodium 50-8.6 MG Tab PO SCH (09:30)
[2023-02-22] MEDS ORDERED: Polyethylene Glycol 3350 Powder 17 GM Packet PO SCH (09:30)
[2023-02-22 14:46] LABS: INR 3.25; PROTHROMBIN TIME 31.9 SECONDS (9.7-12.0)
[2023-02-22] MEDS ORDERED: Warfarin 5 MG Tab PO SCH (18:00)
[2023-02-22] MEDS: Carbidopa/Levodopa 25-100 MG Tab.ER PO SCH (20:47)
[2023-02-22] MEDS: Rosuvastatin 10 MG Tab PO SCH (20:47)
[2023-02-23 06:10] LABS: INR 3.28; PROTHROMBIN TIME 32.1 SECONDS (9.7-12.0)
[2023-02-23] MEDS: Carbidopa/Levodopa 25-100 MG Tab PO SCH ×3 (07:54→16:47)
[2023-02-23] MEDS: levETIRAcetam 500 MG Tab PO SCH (08:00)
[2023-02-23] MEDS: Tamsulosin 0.4 MG Cap.ER PO SCH (08:00)
[2023-02-23] MEDS: Amiodarone 200 MG Tab PO SCH (08:00)
[2023-02-23] MEDS: Potassium Chloride 20 MEQ Tab.ER PO SCH (08:00)
[2023-02-23] MEDS: Sertraline 50 MG Tab PO SCH (08:00)
[2023-02-23] MEDS: Multivitamins with Minerals/Folic Acid/Lutein/Zeaxanth Tab PO SCH (08:00)
[2023-02-23] MEDS: Pantoprazole 40 MG Tab.CR PO SCH (08:00)
[2023-02-23] MEDS: Metoprolol Succinate 25 MG Tab.ER PO SCH (08:00)
[2023-02-23] MEDS: Aspirin 81 MG Tab.Chew PO SCH (08:00)
[2023-02-23] MEDS: Warfarin 5 MG Tab PO SCH ×2 (16:47→17:05)
[2023-02-23] MEDS: Carbidopa/Levodopa 25-100 MG Tab.ER PO SCH (21:24)
[2023-02-23] MEDS: Rosuvastatin 10 MG Tab PO SCH (21:24)
[2023-02-24 06:26] LABS: INR 3.61; PROTHROMBIN TIME 35.1 SECONDS (9.7-12.0)
[2023-02-24] MEDS: Multivitamins with Minerals/Folic Acid/Lutein/Zeaxanth Tab PO SCH (08:58)
[2023-02-24] MEDS: Metoprolol Succinate 25 MG Tab.ER PO SCH (08:59)
[2023-02-24] MEDS: levETIRAcetam 500 MG Tab PO SCH (08:59)
[2023-02-24] MEDS: Sertraline 50 MG Tab PO SCH (08:59)
[2023-02-24] MEDS: Tamsulosin 0.4 MG Cap.ER PO SCH (08:59)
[2023-02-24] MEDS: Pantoprazole 40 MG Tab.CR PO SCH (09:00)
[2023-02-24] MEDS: Aspirin 81 MG Tab.Chew PO SCH (09:00)
[2023-02-24] MEDS: Carbidopa/Levodopa 25-100 MG Tab PO SCH ×3 (09:00→17:04)
[2023-02-24] MEDS: Amiodarone 200 MG Tab PO SCH (09:00)
[2023-02-24] MEDS: Potassium Chloride 20 MEQ Tab.ER PO SCH (09:01)
[2023-02-24] MEDS ORDERED: Warfarin Sliding Scale PO SCH (18:00)
[2023-02-24] MEDS: Rosuvastatin 10 MG Tab PO SCH (20:47)
[2023-02-24] MEDS: Carbidopa/Levodopa 25-100 MG Tab.ER PO SCH (20:47)
[2023-02-25 06:01] LABS: INR 3.54; PROTHROMBIN TIME 34.5 SECONDS (9.7-12.0)
[2023-02-25] MEDS: Carbidopa/Levodopa 25-100 MG Tab PO SCH ×2 (06:16→10:20)
[2023-02-25] MEDS: levETIRAcetam 500 MG Tab PO SCH (08:25)
[2023-02-25] MEDS: Aspirin 81 MG Tab.Chew PO SCH (08:25)
[2023-02-25] MEDS: Amiodarone 200 MG Tab PO SCH (08:25)
[2023-02-25] MEDS: Pantoprazole 40 MG Tab.CR PO SCH (08:25)
[2023-02-25] MEDS: Potassium Chloride 20 MEQ Tab.ER PO SCH (08:25)
[2023-02-25] MEDS: Tamsulosin 0.4 MG Cap.ER PO SCH (08:25)
[2023-02-25] MEDS: Multivitamins with Minerals/Folic Acid/Lutein/Zeaxanth Tab PO SCH (08:25)
[2023-02-25] MEDS: Sertraline 50 MG Tab PO SCH (08:25)
[2023-02-25] MEDS: Metoprolol Succinate 25 MG Tab.ER PO SCH (08:28)
[2023-02-25 13:20] VITALS: BP 103/68; PULSE 70
[2023-02-25] MEDS ORDERED: Warfarin Sliding Scale PO SCH (18:00)
== END 2023-02-25 13:24 | DRG 100 ==
LOC: JD.ED 10:18 → JD.MS 16:49
PROVIDERS: ADMIT Emergency Medicine; ATTEND Internal Medicine
DX: R56.9 Unspecified convulsions (principal); F02.80 Dementia in other diseases classified elsewhere, unspecified severity, without behavioral disturbance, psychotic disturbance, mood disturbance, and anxiety; I50.43 Acute on chronic combined systolic (congestive) and diastolic (congestive) heart failure; I48.20 Chronic atrial fibrillation, unspecified; J98.11 Atelectasis; I95.2 Hypotension due to drugs; G20.A1 Parkinson's disease without dyskinesia, without mention of fluctuations; T46.2X5A Adverse effect of other antidysrhythmic drugs, initial encounter; I48.91 Unspecified atrial fibrillation; G30.0 Alzheimer's disease with early onset; Z95.0 Presence of cardiac pacemaker; F02.A0 Dementia in other diseases classified elsewhere, mild, without behavioral disturbance, psychotic disturbance, mood disturbance, and anxiety; E11.9 Type 2 diabetes mellitus without complications; I25.10 Atherosclerotic heart disease of native coronary artery without angina pectoris; K21.9 Gastro-esophageal reflux disease without esophagitis; N40.0 Benign prostatic hyperplasia without lower urinary tract symptoms; F41.9 Anxiety disorder, unspecified; I11.0 Hypertensive heart disease with heart failure; D69.6 Thrombocytopenia, unspecified; I50.84 End stage heart failure; R79.1 Abnormal coagulation profile; R07.9 Chest pain, unspecified; Z79.01 Long term (current) use of anticoagulants; Z85.72 Personal history of non-Hodgkin lymphomas; Z95.810 Presence of automatic (implantable) cardiac defibrillator; Z79.82 Long term (current) use of aspirin; Z79.899 Other long term (current) drug therapy; Z86.16 Personal history of COVID-19; Z86.010 Personal history of colon polyps; Z90.49 Acquired absence of other specified parts of digestive tract; Z96.619 Presence of unspecified artificial shoulder joint
CPT/HCPCS: 36415; 70450; 71045; 80053; 81001; 83605; 83735; 83880; 84484; 85025; 85610; 85652; 93005; 96365; 99285; J1953; J3490; J7120; 80048; 82947; 84100; 84443; 85027; 93010; 97110-GP; 97116-GP; 97162-GP; A9270-GY; J7030; U0002

== ENCOUNTER 2024-01-07 16:52 | Inpatient (IN) | payer MEDICARE ==
[2024-01-07] MEDS ORDERED: Sodium Chloride 0.9% 10 ML Syringe FLUSH PRN (17:23)
[2024-01-07 17:58] LABS: HEMATOCRIT 39.7 % (42.0-52.0); HEMOGLOBIN 12.7 gm/dl (14.0-18.0); MEAN CORPUSCULAR HEMOGLOBIN 29.2 pg (28.0-32.0); MEAN CORPUSCULAR VOLUME 91.3 fl (83.0-99.0); MEAN PLATELET VOLUME 9.5 fl (9.4-12.4); PLATELET COUNT,PLT 238 K/mm3 (150-400); RED BLOOD CELL COUNT 4.35 M/mm3 (4.52-5.90); WHITE BLOOD CELL COUNT,WBC 9.97 K/mm3 (3.9-11.3)
[2024-01-07 18:16] LABS: A/G RATIO 0.7 (1-2); ALBUMIN 2.6 g/dl (3.4-5.0); ANION GAP 12.6 (5-15); BILIRUBIN TOTAL 0.9 mg/dL (0.2-1.0); BUN/CREATININE RATIO 22.4 (14-18); C-REACTIVE PROTEIN 9.21 mg/dL (<0.30); CALCIUM 8.8 mg/dL (8.5-10.1); CREATININE 1.7 mg/dL (0.7-1.3); EST CRCL DRUG DOSING (CG) 45.4 mL/min; POTASSIUM,K 4.6 mEq/L (3.5-5.1); PROTEIN TOTAL,TP 6.2 g/dl (6.4-8.2)
[2024-01-07 18:19] LABS: INR 1.09; PROTHROMBIN TIME 11.5 SECONDS (9.7-12.0)
[2024-01-07 18:24] LABS: LACTIC ACID 1.5 mmol/L (0.4-2.0)
[2024-01-07 18:42] LABS: CORONAVIRUS COVID-19 NAA NEGATIVE (NEGATIVE); INFLUENZA A NAA NEGATIVE (NEGATIVE); RESPIRATORY SYNCYTIAL VIR NAA NEGATIVE (NEGATIVE)
[2024-01-07 18:54] LABS: BAND PERCENT MAN 0 % (0-10); BASOPHILS PERCENT MAN 0 (0.2-1.2); EOSINOPHILS PERCENT MAN 0 % (0.8-7.0); LYMPHOCYTES % ATYPICAL MANUAL 0 %; LYMPHOCYTES PERCENT MAN 13 % (20-40); MONOCYTES PERCENT MAN 6 % (2-10); PLATELET COUNT ESTIMATE ADEQUATE
[2024-01-07] MEDS: Iopamidol 755 Mg/ML 100 ML Bottle IVPUSH ONE (18:55)
[2024-01-07] MEDS: Sodium Chloride 0.9% 100 ML IV SCH (18:55)
[2024-01-07 18:56] LABS: BURR CELLS 1+ SLIGHT; OVALOCYTES 1+ SLIGHT; POIKILOCYTOSIS 1+ SLIGHT
[2024-01-07] MEDS: Sodium Chloride 0.9% 1,000 ML IV SCH (19:30)
[2024-01-07] MEDS: cefTRIAXone 2 GM in Sodium Chloride 0.9% 100 ML IV ONE (20:08)
[2024-01-07] MEDS: Furosemide 40 MG/4 ML VIAL IVPUSH ONE (20:08)
[2024-01-07] MEDS ORDERED: fentaNYL 100 MCG/2 ML SDV IVPUSH PRN (20:43)
[2024-01-07] MEDS: VANCOmycin 1 GM in Sodium Chloride 0.9% 250 ML IV ONE (21:52)
[2024-01-08 06:49] LABS: BASOPHILS PERCENT AUTO 0.5 % (0.0-1.0); EOSINOPHILS ABSOLUTE AUTO 0.1 K/mm3 (0.0-0.4); EOSINOPHILS PERCENT AUTO 1.6 % (0.0-6.0); HEMATOCRIT 39.8 % (42.0-52.0); HEMOGLOBIN 12.6 gm/dl (14.0-18.0); IMMATURE GRAN ABSOLUTE AUTO 0.04 K/mm3 (0.00-0.05); IMMATURE GRAN PERCENT AUTO 0.5 % (0.0-0.4); LYMPHOCYTES ABSOLUTE AUTO 0.8 K/mm3 (1.0-4.8); MEAN CORPUSCULAR HEMOGLOBIN 28.8 pg (28.0-32.0); MEAN CORPUSCULAR HGB CONC 31.7 g/dl (32.0-36.0); MEAN CORPUSCULAR VOLUME 91.1 fl (83.0-99.0); MEAN PLATELET VOLUME 9.9 fl (9.4-12.4); MONOCYTES ABSOLUTE AUTO 0.9 K/mm3 (0.0-0.8); NEUTROPHILS ABSOLUTE AUTO 5.7 K/mm3 (1.8-7.7); NEUTROPHILS PERCENT AUTO 74.4 % (41.0-71.0); PLATELET COUNT,PLT 200 K/mm3 (150-400); RED BLOOD CELL COUNT 4.37 M/mm3 (4.52-5.90); WHITE BLOOD CELL COUNT,WBC 7.66 K/mm3 (3.9-11.3)
[2024-01-08 07:07] LABS: A/G RATIO 0.8 (1-2); ALBUMIN 2.4 g/dl (3.4-5.0); ANION GAP 14.2 (5-15); BILIRUBIN TOTAL 0.8 mg/dL (0.2-1.0); BUN/CREATININE RATIO 24.3 (14-18); C-REACTIVE PROTEIN 8.53 mg/dL (<0.30); CALCIUM 8.9 mg/dL (8.5-10.1); CREATININE 1.4 mg/dL (0.7-1.3); EST CRCL DRUG DOSING (CG) 54.97 mL/min; MAGNESIUM 2.6 mg/dL (1.8-2.4); PROTEIN TOTAL,TP 5.6 g/dl (6.4-8.2)
[2024-01-08 07:12] LABS: POTASSIUM,K 4.2 mEq/L (3.5-5.1)
[2024-01-08] MEDS ORDERED: Acetaminophen 325 MG Tab PO PRN (09:41)
[2024-01-08] MEDS ORDERED: Ondansetron 4 MG Tab.DIS PO PRN (09:41)
[2024-01-08] MEDS ORDERED: Polyethylene Glycol 3350 Powder 17 GM Packet PO PRN (09:41)
[2024-01-08] MEDS ORDERED: oxyCODONE 5 MG Tab PO PRN (09:41)
[2024-01-08] MEDS ORDERED: Albuterol 0.083% 2.5 MG/3 ML Neb Soln NEB PRN (09:41)
[2024-01-08] MEDS ORDERED: Ondansetron 4 MG/2 ML SDV IV PRN (09:41)
[2024-01-08] MEDS ORDERED: Albuterol/Ipratropium 3.0-0.5 MG/3 ML Neb Soln NEB PRN (09:41)
[2024-01-08] MEDS ORDERED: Docusate Sodium 100 MG Cap PO PRN (09:41)
[2024-01-08] MEDS: Enoxaparin 40 MG/0.4 ML Syringe SUBCUT SCH (10:32)
[2024-01-08] MEDS: Aspirin 81 MG Tab.Chew PO SCH (10:32)
[2024-01-08] MEDS: Sertraline 25 MG Tab PO SCH (10:32)
[2024-01-08] MEDS: Bumetanide 1 MG/4 ML MDV IVPUSH ONE ×2 (10:32→16:29)
[2024-01-08] MEDS: Carbidopa/Levodopa 25-100 MG Tab PO SCH (10:32)
[2024-01-08] MEDS: Metoprolol Succinate 25 MG Tab.ER PO SCH (10:48)
[2024-01-08] MEDS: cefTRIAXone 2 GM in Sodium Chloride 0.9% 100 ML IV SCH (20:58)
[2024-01-08] MEDS: Rosuvastatin 10 MG Tab PO SCH (20:59)
[2024-01-08] MEDS: Mirtazapine 30 MG Tab PO SCH (20:59)
[2024-01-08] MEDS: Carbidopa/Levodopa 25-100 MG Tab.ER PO SCH (20:59)
[2024-01-08] MEDS: Potassium Chloride 20 MEQ Tab.ER PO SCH (21:02)
[2024-01-08] MEDS: VANCOmycin 1.25 GM/250 ML 1.25 GM in Premix Bag 1 BAG IV SCH (21:16)
[2024-01-09 04:39] LABS: BASOPHILS PERCENT AUTO 0.5 % (0.0-1.0); EOSINOPHILS ABSOLUTE AUTO 0.2 K/mm3 (0.0-0.4); EOSINOPHILS PERCENT AUTO 2.7 % (0.0-6.0); HEMATOCRIT 34.6 % (42.0-52.0); IMMATURE GRAN ABSOLUTE AUTO 0.04 K/mm3 (0.00-0.05); IMMATURE GRAN PERCENT AUTO 0.5 % (0.0-0.4); LYMPHOCYTES ABSOLUTE AUTO 0.6 K/mm3 (1.0-4.8); LYMPHOCYTES PERCENT AUTO 8.8 % (24.0-44.0); MEAN CORPUSCULAR HEMOGLOBIN 28.9 pg (28.0-32.0); MEAN CORPUSCULAR HGB CONC 31.8 g/dl (32.0-36.0); MEAN CORPUSCULAR VOLUME 91.1 fl (83.0-99.0); MEAN PLATELET VOLUME 9.6 fl (9.4-12.4); MONOCYTES ABSOLUTE AUTO 0.9 K/mm3 (0.0-0.8); MONOCYTES PERCENT AUTO 12.9 % (0.0-8.0); NEUTROPHILS ABSOLUTE AUTO 5.4 K/mm3 (1.8-7.7); NEUTROPHILS PERCENT AUTO 74.6 % (41.0-71.0); PLATELET COUNT,PLT 192 K/mm3 (150-400)
[2024-01-09 05:10] LABS: A/G RATIO 0.7 (1-2); ALBUMIN 2.3 g/dl (3.4-5.0); ANION GAP 13.6 (5-15); BILIRUBIN TOTAL 0.7 mg/dL (0.2-1.0); BUN/CREATININE RATIO 23.6 (14-18); CALCIUM 8.5 mg/dL (8.5-10.1); CREATININE 1.4 mg/dL (0.7-1.3); EST CRCL DRUG DOSING (CG) 54.97 mL/min; MAGNESIUM 2.3 mg/dL (1.8-2.4); POTASSIUM,K 3.6 mEq/L (3.5-5.1); PROTEIN TOTAL,TP 5.5 g/dl (6.4-8.2)
[2024-01-09] MEDS: Tamsulosin 0.4 MG Cap.ER PO SCH (08:52)
[2024-01-09] MEDS: Empagliflozin 10 MG Tab PO SCH (08:53)
[2024-01-09] MEDS: Bumetanide 1 MG/4 ML MDV IVPUSH ONE (10:10)
[2024-01-09] MEDS: Lidocaine 1% 20 ML MDV INJECT ONE (15:30)
[2024-01-09] MEDS: Potassium Chloride 20 MEQ Tab.ER PO ONE (16:01)
[2024-01-09] MEDS: Albumin 25% 12.5 GM in Premix Bag 1 BAG IV SCH (16:47)
[2024-01-09] MEDS: Albumin 25% 50 GM in Premix Bag 1 BAG IV ONE (17:17)
[2024-01-09] MEDS: Albumin 25% 50 GM in Premix Bag 1 BAG IV SCH (17:18)
[2024-01-09] MEDS: Melatonin 3 MG Tab PO PRN (20:38)
[2024-01-10 04:41] LABS: BASOPHILS PERCENT AUTO 0.4 % (0.0-1.0); EOSINOPHILS ABSOLUTE AUTO 0.1 K/mm3 (0.0-0.4); EOSINOPHILS PERCENT AUTO 1.1 % (0.0-6.0); HEMATOCRIT 36.1 % (42.0-52.0); HEMOGLOBIN 11.4 gm/dl (14.0-18.0); IMMATURE GRAN ABSOLUTE AUTO 0.04 K/mm3 (0.00-0.05); IMMATURE GRAN PERCENT AUTO 0.4 % (0.0-0.4); LYMPHOCYTES ABSOLUTE AUTO 0.9 K/mm3 (1.0-4.8); LYMPHOCYTES PERCENT AUTO 9.3 % (24.0-44.0); MEAN CORPUSCULAR HEMOGLOBIN 28.6 pg (28.0-32.0); MEAN CORPUSCULAR HGB CONC 31.6 g/dl (32.0-36.0); MEAN CORPUSCULAR VOLUME 90.7 fl (83.0-99.0); MEAN PLATELET VOLUME 9.6 fl (9.4-12.4); MONOCYTES ABSOLUTE AUTO 1.1 K/mm3 (0.0-0.8); MONOCYTES PERCENT AUTO 11.2 % (0.0-8.0); NEUTROPHILS ABSOLUTE AUTO 7.3 K/mm3 (1.8-7.7); NEUTROPHILS PERCENT AUTO 77.6 % (41.0-71.0); PLATELET COUNT,PLT 213 K/mm3 (150-400); RED BLOOD CELL COUNT 3.98 M/mm3 (4.52-5.90); WHITE BLOOD CELL COUNT,WBC 9.38 K/mm3 (3.9-11.3)
[2024-01-10 05:10] LABS: ALBUMIN 2.6 g/dl (3.4-5.0); ALKALINE PHOSPHATASE 65 U/L (46-116); ANION GAP 14.1 (5-15); ASPARTATE AMNIOTRANSFERASE,AST 22 U/L (15-37); BILIRUBIN TOTAL 0.8 mg/dL (0.2-1.0); BLOOD UREA NITROGEN,BUN 34 mg/dL (7-18); BUN/CREATININE RATIO 22.7 (14-18); CALCIUM 8.3 mg/dL (8.5-10.1); CARBON DIOXIDE,CO2 24 mEq/L (21-32); CHLORIDE,CL 105 mEq/L (98-107); CREATININE 1.5 mg/dL (0.7-1.3); ESTIMATED GFR 50 mL/min (>60); GLUCOSE RANDOM 105 mg/dL (70-99); MAGNESIUM 2.2 mg/dL (1.8-2.4); POTASSIUM,K 4.1 mEq/L (3.5-5.1); PROTEIN TOTAL,TP 5.2 g/dl (6.4-8.2); SODIUM,NA 139 mEq/L (136-145)
[2024-01-10 05:39] LABS: ALANINE AMINOTRANSFERASE,ALT < 6 U/L (16-63); EST CRCL DRUG DOSING (CG) 48.16 mL/min
[2024-01-10 09:04] VITALS: BP 140/96; PULSE 86
== END 2024-01-10 11:03 | disposition home or self-care (01) | DRG 291 ==
LOC: JD.ED 16:52 → JD.MS 20:44
PROVIDERS: ADMIT Student in an Organized Health Care Education/Training Program; ATTEND Student in an Organized Health Care Education/Training Program
PROC: 0W9B3ZZ Drainage of Left Pleural Cavity, Percutaneous Approach (ICD-10-PCS; principal; 2024-01-09)
PROC: 0W9G3ZZ Drainage of Peritoneal Cavity, Percutaneous Approach (ICD-10-PCS; 2024-01-09)
DX: I50.23 Acute on chronic systolic (congestive) heart failure (principal); I11.0 Hypertensive heart disease with heart failure; I26.93 Single subsegmental thrombotic pulmonary embolism without acute cor pulmonale; I50.43 Acute on chronic combined systolic (congestive) and diastolic (congestive) heart failure; D84.9 Immunodeficiency, unspecified; L03.313 Cellulitis of chest wall; R18.8 Other ascites; J90 Pleural effusion, not elsewhere classified; Z79.84 Long term (current) use of oral hypoglycemic drugs; F02.A4 Dementia in other diseases classified elsewhere, mild, with anxiety; I42.9 Cardiomyopathy, unspecified; Z66 Do not resuscitate; Z96.619 Presence of unspecified artificial shoulder joint; R79.89 Other specified abnormal findings of blood chemistry; G30.0 Alzheimer's disease with early onset; G20.B1 Parkinson's disease with dyskinesia, without mention of fluctuations; H54.7 Unspecified visual loss; I48.91 Unspecified atrial fibrillation; K21.9 Gastro-esophageal reflux disease without esophagitis; N40.0 Benign prostatic hyperplasia without lower urinary tract symptoms; Z95.0 Presence of cardiac pacemaker; Z79.2 Long term (current) use of antibiotics; Z79.899 Other long term (current) drug therapy; Z79.82 Long term (current) use of aspirin; Z86.0100 Personal history of colon polyps, unspecified; Z90.89 Acquired absence of other organs; Z98.890 Other specified postprocedural states; Z86.16 Personal history of COVID-19
CPT/HCPCS: 0241U; 36415; 71046; 71275; 80053; 80202; 83605; 83735; 83880; 84100; 84484; 85007; 85025; 85027; 85610; 86140; 87040; 93005; 93306; 93970; 94760; 96365; 96375; 97110; 97116; 97161; 97530; 99285; 32555; 49083; 93010; A9270-GY; J0696; J1650; J1940; J3372; J3490; J7030; J7050; P9047; Q9967

== ENCOUNTER 2024-03-01 19:50 | Emergency (ER) | payer MEDICARE ==
[2024-03-01 20:00] LABS: BASOPHILS ABSOLUTE AUTO 0.1 K/mm3 (0.0-0.2); BASOPHILS PERCENT AUTO 0.3 % (0.0-1.0); EOSINOPHILS ABSOLUTE AUTO 0.1 K/mm3 (0.0-0.4); EOSINOPHILS PERCENT AUTO 0.6 % (0.0-6.0); HEMATOCRIT 45.8 % (42.0-52.0); HEMOGLOBIN 14.4 gm/dl (14.0-18.0); IMMATURE GRAN ABSOLUTE AUTO 0.08 K/mm3 (0.00-0.05); IMMATURE GRAN PERCENT AUTO 0.6 % (0.0-0.4); LYMPHOCYTES ABSOLUTE AUTO 1.2 K/mm3 (1.0-4.8); LYMPHOCYTES PERCENT AUTO 8.1 % (24.0-44.0); MEAN CORPUSCULAR HEMOGLOBIN 28.6 pg (28.0-32.0); MEAN CORPUSCULAR HGB CONC 31.4 g/dl (32.0-36.0); MEAN CORPUSCULAR VOLUME 90.9 fl (83.0-99.0); MEAN PLATELET VOLUME 9.3 fl (9.4-12.4); MONOCYTES ABSOLUTE AUTO 1.2 K/mm3 (0.0-0.8); MONOCYTES PERCENT AUTO 8.3 % (0.0-8.0); NEUTROPHILS ABSOLUTE AUTO 11.9 K/mm3 (1.8-7.7); NEUTROPHILS PERCENT AUTO 82.1 % (41.0-71.0); PLATELET COUNT,PLT 268 K/mm3 (150-400); RED BLOOD CELL COUNT 5.04 M/mm3 (4.52-5.90); WHITE BLOOD CELL COUNT,WBC 14.43 K/mm3 (3.9-11.3)
[2024-03-01 20:25] LABS: LACTIC ACID 1.6 mmol/L (0.4-2.0)
[2024-03-01 20:31] LABS: A/G RATIO 0.7 (1-2); ALBUMIN 2.5 g/dl (3.4-5.0); ANION GAP 15.9 (5-15); BILIRUBIN TOTAL 1.1 mg/dL (0.2-1.0); BUN/CREATININE RATIO 27.2 (14-18); CALCIUM 8.8 mg/dL (8.5-10.1); CREATININE 1.8 mg/dL (0.7-1.3); MAGNESIUM 2.4 mg/dL (1.8-2.4); POTASSIUM,K 4.9 mEq/L (3.5-5.1)
[2024-03-01 20:32] LABS: EST CRCL DRUG DOSING (CG) 46.55 mL/min
[2024-03-01 20:33] VITALS: PULSE 81
[2024-03-01 22:23] LABS: APPEARANCE,URINE CLEAR (Clear); BILIRUBIN,URINE NEGATIVE (Negative); COLOR,URINE YELLOW (Yellow); GLUCOSE,URINE 1+ (Negative); KETONES,URINE NEGATIVE (Negative); LEUKOCYTE ESTERASE,URINE NEGATIVE (Negative); NITRITE,URINE NEGATIVE (Negative); OCCULT BLOOD,URINE NEGATIVE (Negative); PROTEIN,URINE NEGATIVE (Negative); UROBILINOGEN,URINE 0.2 (0.2-1.0)
[2024-03-01] MEDS: Rosuvastatin 10 MG Tab PO ONE (22:54)
[2024-03-01] MEDS: Aspirin 81 MG Tab.EC PO SCH (22:54)
[2024-03-01] MEDS: Mirtazapine 30 MG Tab PO STA (22:55)
[2024-03-01] MEDS: Sertraline 25 MG Tab PO STA (22:55)
[2024-03-01] MEDS: Tamsulosin 0.4 MG Cap.ER PO ONE (22:55)
[2024-03-01] MEDS: Aspirin 81 MG Tab.EC ONE (22:56)
[2024-03-01] MEDS: Bumetanide 1 MG/4 ML MDV IVPUSH ONE (23:29)
[2024-03-01] MEDS: cefTRIAXone 1 GM Vial IVPUSH ONE (23:29)
[2024-03-02 00:53] VITALS: BP 112/83
== END 2024-03-02 00:45 | disposition home or self-care (01) ==
LOC: JD.ED 19:50
DX: S41.111A Laceration without foreign body of right upper arm, initial encounter (principal); L03.115 Cellulitis of right lower limb; I50.9 Heart failure, unspecified; Z86.16 Personal history of COVID-19; Z90.89 Acquired absence of other organs; Z79.82 Long term (current) use of aspirin; Z79.899 Other long term (current) drug therapy; W01.198A Fall on same level from slipping, tripping and stumbling with subsequent striking against other object, initial encounter
CPT/HCPCS: 36415; 70450; 71045; 72125; 72128; 72131; 73060; 73502; 80053; 81003; 83605; 83735; 83880; 84484; 85025; 87428; 93005; 93971; 96374; 96375; 99285; A9270; J0696; J3490

== ENCOUNTER 2024-03-11 10:42 | Emergency (ER) | payer MEDICARE ==
[2024-03-11 11:21] VITALS: BP 96/65; PULSE 92
[2024-03-11 11:31] LABS: BASOPHILS PERCENT AUTO 0.3 % (0.0-1.0); EOSINOPHILS PERCENT AUTO 0.2 % (0.0-6.0); HEMOGLOBIN 14.3 gm/dl (14.0-18.0); IMMATURE GRAN ABSOLUTE AUTO 0.14 K/mm3 (0.00-0.05); IMMATURE GRAN PERCENT AUTO 1.2 % (0.0-0.4); LYMPHOCYTES ABSOLUTE AUTO 0.6 K/mm3 (1.0-4.8); LYMPHOCYTES PERCENT AUTO 5.2 % (24.0-44.0); MEAN CORPUSCULAR HEMOGLOBIN 28.3 pg (28.0-32.0); MEAN CORPUSCULAR HGB CONC 31.8 g/dl (32.0-36.0); MEAN CORPUSCULAR VOLUME 89.1 fl (83.0-99.0); MEAN PLATELET VOLUME 10.2 fl (9.4-12.4); MONOCYTES ABSOLUTE AUTO 0.9 K/mm3 (0.0-0.8); NEUTROPHILS ABSOLUTE AUTO 9.7 K/mm3 (1.8-7.7); NEUTROPHILS PERCENT AUTO 85.1 % (41.0-71.0); PLATELET COUNT,PLT 314 K/mm3 (150-400); RED BLOOD CELL COUNT 5.05 M/mm3 (4.52-5.90); WHITE BLOOD CELL COUNT,WBC 11.43 K/mm3 (3.9-11.3)
[2024-03-11 11:42] LABS: A/G RATIO 0.7 (1-2); ALBUMIN 2.3 g/dl (3.4-5.0); ANION GAP 16.9 (5-15); BILIRUBIN TOTAL 1.1 mg/dL (0.2-1.0); CALCIUM 8.6 mg/dL (8.5-10.1); CREATININE 2.5 mg/dL (0.7-1.3); EST CRCL DRUG DOSING (CG) 30.52 mL/min; POTASSIUM,K 5.9 mEq/L (3.5-5.1); PROTEIN TOTAL,TP 5.5 g/dl (6.4-8.2)
[2024-03-11 11:52] LABS: BUN/CREATININE RATIO 32.8 (14-18)
== END 2024-03-11 14:55 | disposition hospice, home (50) ==
LOC: JD.ED 10:42
DX: S06.5XAA Traumatic subdural hemorrhage with loss of consciousness status unknown, initial encounter (principal); I50.9 Heart failure, unspecified; I48.91 Unspecified atrial fibrillation; Z79.82 Long term (current) use of aspirin; Z79.899 Other long term (current) drug therapy; Z95.0 Presence of cardiac pacemaker; W19.XXXA Unspecified fall, initial encounter
CPT/HCPCS: 36415; 70450; 70450-26; 72125; 72125-26; 80053; 85025; 99285